=== PATIENT | male | born 1995 ===

== ENCOUNTER → 2019-10-09 12:16 | Outpatient (BNVA) | payer SELFPAY | PROVIDERS: PCP Family Medicine; Visit Provider Nurse Practitioner Family | DX: Z11.59 Encounter for screening for other viral diseases (principal) | CPT/HCPCS: 87635 ==

== ENCOUNTER → 2020-11-27 13:53 | Outpatient (BNVA) | payer MEDICAID, SELFPAY | PROVIDERS: PCP Family Medicine; Visit Provider Nurse Practitioner Family | DX: Z20.822 Contact with and (suspected) exposure to COVID-19 (principal) | CPT/HCPCS: 87635 ==

== ENCOUNTER → 2023-11-16 16:37 | Outpatient (BNVA) | payer SELFPAY | PROVIDERS: PCP Family Medicine; Visit Provider Nurse Practitioner Family | DX: S83.519A Sprain of anterior cruciate ligament of unspecified knee, initial encounter (principal); X58.XXXA Exposure to other specified factors, initial encounter; M25.569 Pain in unspecified knee; G89.29 Other chronic pain | CPT/HCPCS: 73562 ==